=== PATIENT | male | born 1950 | race Caucasian/White ===

== ENCOUNTER 2020-08-16 08:32 | Day surgery (SDC) | payer OTHER, MEDICARE, SELFPAY ==
[~2020-08-16] VITALS: Ht 175.3 cm; Wt 68.0 kg
[~2020-08-16 08:32] MED LIST: CEFAZOLIN SOD 2 GM in D5W 50 ML IV ONE
[2020-08-16] MEDS ORDERED: BUPIVACAINE LIPOSOME/PF 266 MG/20 ML VIAL INFIL ONE (10:11)
[2020-08-16] MEDS ORDERED: SEVOFLURANE 15 MIN GAS INH ONE (10:27)
[2020-08-16] MEDS ORDERED: DEXAMETHASONE SOD PHOSPHATE 4 MG/ML VIAL IVP ONE (10:27)
[2020-08-16] MEDS ORDERED: fentaNYL CITRATE/PF 100 MCG/2 ML AMP IVP ONE (10:27)
[2020-08-16] MEDS ORDERED: LIDOCAINE 2%, 20 ML MDV INJ ONE (10:27)
[2020-08-16] MEDS ORDERED: BUPIVACAINE /EPINEPHRINE/PF 0.25% 30 ML VIAL INJ ONE (10:27)
[2020-08-16] MEDS ORDERED: LR 1,000 ML IV.SOLN IV ONE (10:27)
[2020-08-16] MEDS ORDERED: MIDAZOLAM HCL 5 MG/5 ML VIAL IVP ONE (10:27)
[2020-08-16] MEDS ORDERED: KETOROLAC TROMETHAMINE 30 MG VIAL IVP ONE (10:27)
[2020-08-16] MEDS ORDERED: GLYCOPYRROLATE 0.2 MG/ML VIAL IJ ONE (10:27)
[2020-08-16] MEDS ORDERED: NS IRRIG SOLN 1000 ML IR ONE (10:27)
[2020-08-16] MEDS ORDERED: PROPOFOL 200MG/ 20ML VIAL (DIPRIVAN) IV ONE (10:27)
[2020-08-16] MEDS ORDERED: ONDANSETRON HCL 4 MG/2 ML VIAL IVP ONE (10:27)
[2020-08-16] MEDS ORDERED: MIDAZOLAM HCL 2 MG/2 ML VIAL (VERSED) IVP PRN (11:15)
[2020-08-16] MEDS ORDERED: MEPERIDINE HCL/PF 25 MG/ML DISP.SYRIN IVP PRN (11:15)
[2020-08-16] MEDS ORDERED: HYDROmorphone 1 MG/ML INJ. CARTRIDGE IVP PRN ×2 (11:15)
[2020-08-16] MEDS ORDERED: METOCLOPRAMIDE HCL 10 MG/2 ML VIAL IVP PRN (11:15)
[2020-08-16] MEDS ORDERED: LR 1,000 ML IV SCH (11:15)
[2020-08-16] MEDS ORDERED: hydrALAZINE HCL 20 MG/ML VIAL IVP PRN (11:15)
[2020-08-16] MEDS ORDERED: ONDANSETRON HCL 4 MG/2 ML VIAL IVP PRN (11:15)
[2020-08-16] MEDS ORDERED: POLYMYXIN 500,000/BACIT.10,000 UNITS in NS IRR 1 L IR ONE (11:35)
[2020-08-16 14:46] VITALS: BP_SYST 115
== END 2020-08-16 15:30 | disposition home or self-care (01) ==
LOC: SMU 08:32 → SDS 08:32
PROVIDERS: ATTEND Surgery
DX: K40.90 Unilateral inguinal hernia, without obstruction or gangrene, not specified as recurrent (principal); I10 Essential (primary) hypertension; E78.5 Hyperlipidemia, unspecified; Z79.899 Other long term (current) drug therapy
CPT/HCPCS: 36415; 49505; 87426; 88302; 93005; C1781; C9290; J0690; J1100; J1885; J2001; J2250; J2405; J2704; J3010; J3465; J3490 ×2; J7060; J7120